=== PATIENT | male | born 1990 | race American Indian/Alaskan Native ===

== ENCOUNTER 2017-06-03 23:01 | Emergency (ER) | payer SELFPAY ==
[2017-06-03 23:23] VITALS: BP 181/109
== END 2017-06-04 05:18 | disposition left against medical advice (07) ==
LOC: ED 23:01
DX: R51 Headache (principal); Z53.21 Procedure and treatment not carried out due to patient leaving prior to being seen by health care provider

== ENCOUNTER 2018-11-10 17:43 | Inpatient (IN) | payer OTHER ==
[2018-11-10] MEDS ORDERED: CATAPRES PO ONE (18:12)
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
[2018-11-10] MEDS ORDERED: CATAPRES ONE (18:15)
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
[2018-11-10] MEDS ORDERED: MORPHINE IV ONE (18:53)
[2018-11-10 19:07] LABS: Basophils # (Auto) 0.1 K/mm3 (0.0-0.1); Basophils % (Auto) 0.8 % (0.0-1.8); Eosinophils # (Auto) 0.1 K/mm3 (0.0-0.4); Eosinophils % (Auto) 1.9 % (0.0-4.3); Hematocrit 45.2 % (35.5-45.6); Hemoglobin 15.4 gm/dl (11.8-15.2); Lymphocytes # (Auto) 1.3 K/mm3 (1.2-5.4); Lymphocytes % (Auto) 18.9 % (13.4-35.0); Mean Corpuscular HGB Conc 34 % (32-34); Mean Corpuscular Volume 82 fl (84-94); Monocytes # (Auto) 0.5 K/mm3 (0.0-0.8); Platelet Count 197 K/mm3 (140-440); Red Blood Count 5.52 M/mm3 (3.65-5.03); Red Cell Distribution Width 13.9 % (13.2-15.2)
[2018-11-10 19:22] LABS: BUN/Creatinine Ratio 12; Blood Urea Nitrogen 17 mg/dL (9-20); Calcium 8.7 mg/dL (8.4-10.2); Hemolysis Index 11
--- NOTE | 2018-11-10 19:42 | Cat Scan Report ---
FINAL REPORT PROCEDURE: CT chest without contrast. TECHNIQUE: Computerized axial tomography of the chest was performed without contrast material. This study is performed without intravenous contrast and the sensitivity for pathology, including neoplasm s, adenopathy, abscess, pulmonary embolism and aortic dissection, is reduced. HISTORY: Substernal chest pain. COMPARISON: No prior studies are available for comparison. TECHNICAL QUALITY: Satisfactory. FINDINGS: The trachea and central bronchi appear normal. The lungs are clear and well expanded. There are no pl eural effusions. The thoracic aorta has a normal caliber. There is no mediastinal adenopathy. The hea rt size is normal. The adrenal glands are not enlarged. The thoracic skeleton appears intact. IMPRESSION: Normal unenhanced study of the chest.
[2018-11-10] MEDS ORDERED: NORMODYNE IV ONE (19:53)
[2018-11-10] MEDS ORDERED: ASPIRIN PO ONE (19:56)
[2018-11-10] MEDS ORDERED: ZOFRAN IV PRN (20:39)
[2018-11-10] MEDS ORDERED: SODIUM CHLORIDE FLUSH SYRINGE 10 ML IV PRN (20:39)
[2018-11-10] MEDS ORDERED: MORPHINE IV PRN (20:39)
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
[2018-11-10 22:37] LABS: BUN/Creatinine Ratio 11; Blood Urea Nitrogen 17 mg/dL (9-20); Calcium 8.9 mg/dL (8.4-10.2); Hemolysis Index 9
[2018-11-10 22:41] LABS: Chol/HDL Ratio 4.29 %
[2018-11-10] MEDS: APRESOLINE IV PRN (23:09)
[2018-11-10] MEDS: SODIUM CHLORIDE FLUSH SYRINGE 10 ML IV SCH (23:10)
[2018-11-11 05:26] LABS: Basophils % (Auto) 0.4 % (0.0-1.8); Eosinophils # (Auto) 0.2 K/mm3 (0.0-0.4); Eosinophils % (Auto) 2.6 % (0.0-4.3); Hematocrit 42.3 % (35.5-45.6); Hemoglobin 14.1 gm/dl (11.8-15.2); Lymphocytes # (Auto) 1.9 K/mm3 (1.2-5.4); Lymphocytes % (Auto) 28.2 % (13.4-35.0); Mean Corpuscular HGB Conc 33 % (32-34); Mean Corpuscular Volume 83 fl (84-94); Monocytes # (Auto) 0.6 K/mm3 (0.0-0.8); Monocytes % (Auto) 9.3 % (0.0-7.3); Platelet Count 179 K/mm3 (140-440); Red Cell Distribution Width 14.1 % (13.2-15.2)
[2018-11-11 05:34] LABS: Alanine Aminotransferase 21 units/L (7-56); Albumin 3.2 g/dL (3.9-5); BUN/Creatinine Ratio 13; Blood Urea Nitrogen 18 mg/dL (9-20); Calcium 8.3 mg/dL (8.4-10.2); Hemolysis Index 9
[2018-11-11] MEDS ORDERED: LEXISCAN IV ONE ×2 (09:54→09:56)
[2018-11-11] MEDS ORDERED: NORVASC PO SCH (10:00)
[2018-11-11] MEDS: APRESOLINE IV PRN ×2 (10:44→17:30)
[2018-11-11] MEDS ORDERED: APRESOLINE ONE (10:44)
[2018-11-11] MEDS: SODIUM CHLORIDE FLUSH SYRINGE 10 ML IV SCH ×2 (11:43→22:14)
[2018-11-11] MEDS ORDERED: NORVASC PO ONE (11:50)
--- NOTE | 2018-11-11 14:04 | Progress Note ---
Assessment and Plan Assessment and plan: 28-year-old man with past medical history of hypertension and, states that he stopped taking his medication years ago. Presents with chest pain and headache. Found to have very elevated blood pressure, systolic was 250 on arrival. Plan Follow-up stress tests ACS ruled out, troponins negative 3 -Optimize blood pressure medications -He has been counseled on improved adherence to blood pressure medications, will need a blood pressure check at least 1-2 weeks after discharge Diagnoses Chest pain Hypertensive urgency History Interval history: Review of systems Constitutional: No fevers, no malaise, no joint pains CVS: No chest pain, no orthopnea, no dyspnea on exertion, no pedal edema GI: No abdominal pain, no diarrhea, no vomiting, no constipation Respiratory: No shortness of breath, no wheezing, no coughing Hospitalist Physical - Physical exam Narrative exam: General.: Appears well, no distress, nontoxic HEENT: Moist mucous membranes, extraocular muscles intact, no lymphadenopathy Neck: supple Cardiac: S1-S2 heard Lungs: clear to auscultation bilaterally Abdomen: soft , nontender, nondistended, bowel sounds positive Extremities: no edema clubbing or cyanosis Skin: no rash or lesions Neurologic: no gross focal deficits Psych: calm, and cooperative - Constitutional Vitals: Temp Pulse Resp BP Pulse Ox 97.9 F 100 H 20 177/102 97 11/11/18 12:04 11/11/18 12:04 11/11/18 12:04 11/11/18 12:04 11/11/18 12:04 General appearance: Present: no acute distress Results - Labs CBC & Chem 7: 11/11/18 05:01 11/11/18 05:01 Labs: Laboratory Last Values WBC 6.9 K/mm3 (4.5-11.0) 11/11/18 05:01 RBC 5.10 M/mm3 (3.65-5.03) H 11/11/18 05:01 Hgb 14.1 gm/dl (11.8-15.2) 11/11/18 05:01 Hct 42.3 % (35.5-45.6) 11/11/18 05:01 MCV 83 fl (84-94) L 11/11/18 05:01 MCH 28 pg (28-32) 11/11/18 05:01 MCHC 33 % (32-34) 11/11/18 05:01 RDW 14.1 % (13.2-15.2) 11/11/18 05:01 Plt Count 179 K/mm3 (140-440) 11/11/18 05:01 Lymph % (Auto) 28.2 % (13.4-35.0) 11/11/18 05:01 [place] % (Auto) 9.3 % (0.0-7.3) H 11/11/18 05:01 Eos % (Auto) 2.6 % (0.0-4.3) 11/11/18 05:01 Baso % (Auto) 0.4 % (0.0-1.8) 11/11/18 05:01 Lymph # 1.9 K/mm3 (1.2-5.4) 11/11/18 05:01 [place] # 0.6 K/mm3 (0.0-0.8) 11/11/18 05:01 Eos # 0.2 K/mm3 (0.0-0.4) 11/11/18 05:01 Baso # 0.0 K/mm3 (0.0-0.1) 11/11/18 05:01 Seg Neutrophils % 59.5 % (40.0-70.0) 11/11/18 05:01 Seg Neutrophils # 4.1 K/mm3 (1.8-7.7) 11/11/18 05:01 Sodium 138 mmol/L (137-145) 11/11/18 05:01 Potassium 3.6 mmol/L (3.6-5.0) D 11/11/18 05:01 Chloride 103.2 mmol/L (98-107) 11/11/18 05:01 Carbon Dioxide 26 mmol/L (22-30) 11/11/18 05:01 Anion Gap 12 mmol/L 11/11/18 05:01 BUN 18 mg/dL (9-20) 11/11/18 05:01 Creatinine 1.4 mg/dL (0.8-1.5) 11/11/18 05:01 Estimated GFR > 60 ml/min 11/11/18 05:01 BUN/Creatinine Ratio 13 % 11/11/18 05:01 Glucose 87 mg/dL (75-100) 11/11/18 05:01 Hemoglobin A1c 5.5 % (4-6) 02/06/19 22:09 Calcium 8.3 mg/dL (8.4-10.2) L 11/11/18 05:01 Total Bilirubin 0.20 mg/dL (0.1-1.2) 11/11/18 05:01 AST 28 units/L (5-40) 11/11/18 05:01 ALT 21 units/L (7-56) 11/11/18 05:01 Alkaline Phosphatase 107 units/L (35-129) 11/11/18 05:01 Troponin T 0.017 ng/mL (0.00-0.029) 11/11/18 05:01 Total Protein 6.5 g/dL (6.3-8.2) 11/11/18 05:01 Albumin 3.2 g/dL (3.9-5) L 11/11/18 05:01 Albumin/Globulin Ratio 1.0 % 11/11/18 05:01 Triglycerides 52 mg/dL (2-149) 11/10/18 22:09 Cholesterol 219 mg/dL (50-199) H 11/10/18 22:09 LDL Cholesterol Direct 146 mg/dL (50-130) H 11/10/18 22:09 HDL Cholesterol 51 mg/dL (40-59) 11/10/18 22:09 Cholesterol/HDL Ratio 4.29 % 11/10/18 22:09
[2018-11-11] MEDS: TYLENOL PO PRN (14:56)
[2018-11-11] MEDS: ECOTRIN PO SCH (14:58)
[2018-11-11] MEDS: HCTZ PO SCH (14:58)
[2018-11-11] MEDS: DIOVAN PO SCH ×2 (14:58→22:14)
--- NOTE | 2018-11-11 22:02 | Treadmill Report ---
SINGLE ISOTOPE DUAL STUDY MYOCARDIAL PERFUSION SCAN REPORT Seen and dictated by Flor Wright MD DESCRIPTION OF PROCEDURE: The patient received 10 mCi of technetium 99m Myoview intravenously under resting conditions. Resting myocardial perfusion scan was done. Subsequently, the patient underwent Lexiscan stress test as per the protocol. During Lexiscan stress, the patient received 28 mCi of technetium 99m Myoview intravenously. After 30-60 minutes, post-stress images were done. Computerized reconstruction images were performed for analysis. The post-stress images revealed uniform distribution of the radiopharmaceutical in the left ventricular myocardium. Cinematic display of the gated study did not reveal any wall motion abnormality. The left ventricular ejection fraction was mildly decreased to 48%. The resting images were normal. CONCLUSION: 1. Normal resting as well as stress myocardial perfusion scan images after the patient underwent Lexiscan stress test. 2. Mildly decreased left ventricular ejection fraction of 48%. JOB# [id number] [facility]
[2018-11-12] MEDS: SODIUM CHLORIDE FLUSH SYRINGE 10 ML IV SCH (09:10)
[2018-11-12] MEDS: ECOTRIN PO SCH (09:10)
[2018-11-12] MEDS: DIOVAN PO SCH (09:10)
[2018-11-12] MEDS: HCTZ PO SCH (09:10)
[2018-11-12] MEDS ORDERED: PROCARDIA XL PO SCH (10:00)
[2018-11-12] MEDS ORDERED: NORVASC PO SCH (10:00)
[2018-11-12] MEDS: APRESOLINE IV PRN (11:02)
--- NOTE | 2018-11-12 11:10 | Discharge Summary ---
Providers - Providers Date of Admission: 11/10/18 20:39 Attending physician: LAITH SEXTON MD 11/10/18 Consult to Cardiac Rehabilitation [CONS] Routine Reason For Exam: Phase I Primary care physician: FIONA PAK Hospitalization Condition: Stable Hospital course: 28-year-old man with past medical history of hypertension and, states that he stopped taking his medication years ago. Presents with chest pain and headache. Found to have very elevated blood pressure, systolic was 250 on arrival. He received stress test which was neg. bp meds were optimized -He has been counseled on improved adherence to blood pressure medications, will need a blood pressure check at least 1-2 weeks after discharge Diagnoses Chest pain due to elevated BP Hypertensive urgency Disposition: DC- TO HOME OR SELFCARE Time spent for discharge: 33 mins Core Measure Documentation - Palliative Care Palliative Care/ Comfort Measures: Not Applicable - Core Measures Any of the following diagnoses?: none Exam - Constitutional Vitals: Temp Pulse Resp BP Pulse Ox 98.0 F 83 20 172/126 96 11/12/18 10:48 11/12/18 10:48 11/12/18 10:48 11/12/18 10:48 11/12/18 10:48 General appearance: Present: no acute distress, well-nourished - EENT Eyes: Present: PERRL ENT: hearing intact, clear oral mucosa - Neck Neck: Present: supple, normal ROM - Respiratory Respiratory effort: normal Respiratory: bilateral: CTA - Cardiovascular Heart Sounds: Present: S1 & S2. Absent: rub, click - Extremities Extremities: pulses symmetrical, No edema Peripheral Pulses: within normal limits - Abdominal General gastrointestinal: Present: soft, non-tender, non-distended, normal bowel sounds Male genitourinary: Present: normal - Integumentary Integumentary: Present: clear, warm, dry - Musculoskeletal Musculoskeletal: gait normal, strength equal bilaterally - Psychiatric Psychiatric: appropriate mood/affect, intact judgment & insight - Neurologic Neurologic: CNII-XII intact, moves all extremities Plan Follow up with: FIONA PAK MD [Primary Care Provider] - 7 Days Prescriptions: NIFEdipine XL [Procardia Xl] 60 mg PO Q12HR #60 tablet Valsartan/Hydrochlorothiazide [Valsartan-Hctz 320-25 mg Tab] 1 each PO DAILY #30 tablet
[2018-11-12] MEDS: TYLENOL PO PRN (12:17)
[2018-11-12 15:34] VITALS: BP 134/74
== END 2018-11-12 16:40 | disposition home or self-care (01) | DRG 305 ==
LOC: ED 17:43 → 4A 20:39
PROVIDERS: ADMIT Internal Medicine; ATTEND Internal Medicine
DX: I16.1 Hypertensive emergency (principal); Z68.42 Body mass index [BMI] 45.0-49.9, adult; I10 Essential (primary) hypertension; M94.0 Chondrocostal junction syndrome [Tietze]; M54.2 Cervicalgia; E66.01 Morbid (severe) obesity due to excess calories; Z87.891 Personal history of nicotine dependence; Z82.49 Family history of ischemic heart disease and other diseases of the circulatory system; V29.81 Motorcycle rider (driver) (passenger) injured in transport accident with military vehicle; W22.19XA Striking against or struck by other automobile airbag, initial encounter; Y93.89 Activity, other specified; Y92.89 Other specified places as the place of occurrence of the external cause; Y99.8 Other external cause status
CPT/HCPCS: 36415; 71250; 78452; 80048; 80053; 80061; 83036; 84484; 85025; 93005; 93010; 93017; 93306; 96374; G0378; A9502; J0360; J2270; J2785